=== PATIENT | female | born 1980 | race Caucasian/White ===

== ENCOUNTER 2019-01-08 09:45 | Emergency (ER) | payer MEDICAID ==
[~2019-01-08] VITALS: Ht 177.8 cm; Wt 77.1 kg
[2019-01-08 09:45] VITALS: BP_SYST 117
[2019-01-08 11:37] VITALS: BP_SYST 114
== END 2019-01-08 11:37 ==
LOC: SED 09:45
DX: Z02.89 Encounter for other administrative examinations (principal); F15.10 Other stimulant abuse, uncomplicated
CPT/HCPCS: 99283